=== PATIENT | female | born 1960 | race Caucasian/White ===

== ENCOUNTER 2021-01-07 14:43 | Outpatient (CLI) | payer OTHER, SELFPAY ==
--- NOTE | 2021-01-07 14:48 | MM_ITS ---
WS: [id number] BILATERAL SCREENING DIGITAL MAMMOGRAM WITH CAD HISTORY: SCREENING COMPARISON: 06/14/2017 and 12/18/2014 Bilateral CC and MLO views submitted. Computer aided detection analyzed. Breast composition: There are scattered areas of fibroglandular density. No suspicious masses, microc alcifications or architectural distortion. Asymmetry in the anterior mid RIGHT breast continues to in volute slowly over time. Benign calcifications in each breast. MM/[place] [id number] IMPRESSION: BI-RADS: 2-Benign FOLLOW UP: 1 Year Follow-up
== END 2021-01-07 14:44 | disposition home or self-care (01) ==
LOC: RADSHAW 14:46
PROVIDERS: Family Provider Internal Medicine; Visit Provider Internal Medicine
DX: Z12.31 Encounter for screening mammogram for malignant neoplasm of breast (principal)
CPT/HCPCS: 77067

== ENCOUNTER 2022-06-23 11:08 | Outpatient (CLI) | payer OTHER, SELFPAY ==
--- NOTE | 2022-06-23 11:20 | MM_ITS ---
WS: [id number] Bilateral screening 3D tomosynthesis digital mammogram, 06/23/2022 Clinical Data: SCREENING Comparison: 01/07/2021, 06/14/2017, 12/18/2014, 12/10/2013, 08/01/2012, 09/27/2010, 09/20/2009, 03/30/2008. Findings: The breast parenchymal pattern shows fibroglandular tissue. No spiculated masses or clustered calcifi cations are seen. There are no secondary signs of carcinoma. There are benign calcifications in the a nterior aspect of both breasts, especially on the right. MM/[place] [id number] Impression: 1. Negative bilateral mammogram unchanged. 2. Recommend annual screening mammograms. BIRADS: 1-Negative FOLLOW UP: 1 Year Follow-up The CAD food checker was used.
== END 2022-06-23 11:09 | disposition home or self-care (01) ==
LOC: RAD 11:08
PROVIDERS: Family Provider Internal Medicine; Visit Provider Internal Medicine
DX: Z12.31 Encounter for screening mammogram for malignant neoplasm of breast (principal)
CPT/HCPCS: 77063; 77067

== ENCOUNTER 2024-04-30 11:06 | Outpatient (CLI) | payer OTHER, SELFPAY ==
--- NOTE | 2024-04-30 11:24 | XRR_ITS ---
PROCEDURE INFORMATION: Exam: XR Left Shoulder Exam date and time: 04/30/2024 10:12 AM Age: 63 years old Clinical indication: Patient HX: Pain in left shoulder since fall years ago; Additional info: Pain of left shoulder joint TECHNIQUE: Imaging protocol: Radiologic exam of the left shoulder. Views: 2 or more views. COMPARISON: No relevant prior studies available. FINDINGS: Bones/joints: Moderate acromioclavicular and marked no fracture or dislocation. glenohumeral spurring. Soft tissues: Normal. XR/XR shoulder LT min 2V* [id number] IMPRESSION: Marked degenerative changes.
== END 2024-04-30 11:07 | disposition home or self-care (01) ==
LOC: RADOUTREAD 11:21
PROVIDERS: PCP Internal Medicine; Visit Provider Internal Medicine
DX: M25.512 Pain in left shoulder (principal)

== ENCOUNTER → 2024-06-02 10:40 | Outpatient (BNVA) | payer OTHER, SELFPAY | PROVIDERS: PCP Internal Medicine; Visit Provider Specialist | DX: M19.012 Primary osteoarthritis, left shoulder (principal) | CPT/HCPCS: 73030 ==

== ENCOUNTER 2024-07-01 07:10 | Outpatient (CLI) | payer OTHER, SELFPAY ==
--- NOTE | 2024-07-01 07:15 | MR_ITS ---
WS: [id number] MRI LEFT SHOULDER NONCONTRAST TECHNIQUE: Sagittal T2, coronal T1, T2 and proton density imaging. Axial gradient PDE imaging. CLINICAL INFORMATION: left shoulder pain COMPARISON: None. FINDINGS: Moderate degenerative arthritis at the AC joint with fluid and edema. Slight subacromial spurring. Im pingement distal supraspinatus. Advanced degenerative narrowing of the glenohumeral articulation with hypertrophic spurring along the medial humeral neck. Subchondral cystic change involving the glenoid . Large chronic thinning of the supraspinatus with tendinopathy. Chronic thinning of the infraspinatus with tendinopathy. Teres minor appears intact. Subscapularis tendon appears intact. Biceps tendon maricel ears subluxed or dislocated from the bicipital groove with hypertrophic spur along the proximal groov e. Partial tear of the transverse humeral ligament. Intra-articular biceps tendon appears intact. MR/MR shoulder LT wo con* [id number] IMPRESSION: 1. Marked advanced degenerative changes glenohumeral articulation with loss of the joint space and prominent hypertrophic changes. Prominent spur along the m edial humeral head and neck measuring 2.8 cm. 2. Moderate degenerative arthritis AC joint with slight impingement distal sup raspinatus. Marked chronic thinning of the supraspinatus with tendinopathy. 3. Chronic thinning of the infraspinatus. 4. Partial tear of the transverse humeral ligament with dislocation or subluxa tion of the biceps tendon from the proximal bicipital groove with an associated prominent osteophyte along the medial bicipital groove. 5. Intra-articular biceps tendon appears intact.
== END 2024-07-01 07:11 | disposition home or self-care (01) ==
LOC: RAD 07:11
PROVIDERS: PCP Internal Medicine; Visit Provider Specialist
DX: M19.012 Primary osteoarthritis, left shoulder (principal); S43.492A Other sprain of left shoulder joint, initial encounter; X58.XXXA Exposure to other specified factors, initial encounter
CPT/HCPCS: 73221

== ENCOUNTER 2025-01-27 07:35 | Outpatient (CLI) | payer OTHER, SELFPAY ==
--- NOTE | 2025-01-27 07:39 | CT_ITS ---
WS: [id number] LDCT LUNG CANCER SCREENING HISTORY: NICOTINE DEPENDENCE,CIGARETTES TECHNIQUE: Axial imaging performed from the apices to 1 cm below the costophrenic angles. Coronal and sagittal reformats are submitted with axial MIP series. All CT scans at [facility] use at least one of these dose optimization techniques: automated exposure control; mA and/or kV adjustment per patient size (includes targeted exams where dose is matched to clinical indication); or iterative reconstruction. DLP: 96.60 mGy.cm DIvol: Mean CTDIvol: 2.30 (mGy) COMPARISON: None available. Diagnostic quality: Satisfactory Lungs: Normally aerated lungs. Nodule with adjacent satellite lesions in the superior medial segment of the LEFT lower lobe. Nodule measures 8 mm with smaller adjacent satellite lesions. This is a noncalcified nodule. No additional nodule or mass. No endobronchial lesions. Heart: Normal size heart with no pericardial effusion.. Other findings: No adrenal mass. Upper abdomen is negative. Prior LEFT humeral head prosthesis. CT/CT lung screening [id number] IMPRESSION: LUNG-RADS: 4A-Probably Suspicious FOLLOW UP: 3 Month LDCT OTHER FINDINGS (S MODIFIER): None.
== END 2025-01-27 07:36 | disposition home or self-care (01) ==
PROVIDERS: PCP Internal Medicine; Visit Provider Nurse Practitioner Family
DX: Z12.2 Encounter for screening for malignant neoplasm of respiratory organs (principal); F17.210 Nicotine dependence, cigarettes, uncomplicated; R91.1 Solitary pulmonary nodule; Z96.89 Presence of other specified functional implants
CPT/HCPCS: 71271

== ENCOUNTER 2025-01-30 12:02 | Outpatient (CLI) | payer OTHER, SELFPAY ==
--- NOTE | 2025-01-30 12:08 | MM_ITS ---
WS: [id number] BILATERAL 3D TOMOSYNTHESIS DIGITAL SCREENING MAMMOGRAPHY WITH CAD CLINICAL INFORMATION: SCREENING HISTORY: Screening mammogram. No current complaints. COMPARISON: 2021 TECHNIQUE: Bilateral CC and MLO views. FINDINGS: Bilateral reduction Scattered fibroglandular densities bilaterally. No suspicious focal mass, asymmetry, calcifications, or architectural distortion. No evidence of malignancy. Punctate and lucent centered calcifications RIGHT breast. Nodular RIGHT breast tissue is similar to previous. MM/MM [facility] tomosynthesis [id number] IMPRESSION: DENSITY: There are scattered areas of fibroglandular density. BI-RADS: 2 - Benign. FOLLOW UP: 1 Year Follow-up Recommend return to annual screening mammography.
== END 2025-01-30 12:03 | disposition home or self-care (01) ==
PROVIDERS: PCP Nurse Practitioner Family; Visit Provider Nurse Practitioner Family
DX: Z12.31 Encounter for screening mammogram for malignant neoplasm of breast (principal); R92.323 Mammographic fibroglandular density, bilateral breasts; R92.1 Mammographic calcification found on diagnostic imaging of breast; N64.89 Other specified disorders of breast
CPT/HCPCS: 77063; 77067

== ENCOUNTER 2025-03-31 07:41 | Day surgery (SDC) | payer OTHER, SELFPAY ==
[2025-03-31 07:53] VITALS: BP 140/75; PULSE 91; RESP 18; TEMP 36.6; O2SAT 95; BMI 32.8
[2025-03-31] MEDS: sodium chloride 0.9% 1,000 ML 15 ML IV (08:10)
[2025-03-31 08:15] LABS: Glucose Point of Care 102 mg/dL (70-110)
--- NOTE | 2025-03-31 08:46 | ANES.PREANE2 ---
Pre-Anesthetic Assessment Height/Weight: Height 5 ft 3 in Weight 185 lb Temp Pulse Resp BP Pulse Ox O2 Del Method 97.8 F 91 18 140/75 95 Room Air 03/31/25 07:53 03/31/25 07:53 03/31/25 07:53 03/31/25 07:53 03/31/25 07:53 03/31/25 07:53 Preop Diagnosis: Screening colonoscopy Operation Date: 03/31/25 09:00 Proposed Procedures p Colonoscopy [id number] G0121 Z12.11(Not Applicable) - Lars Tsang MD Was Beta Tram taken within 24 hours: N/A Was Clonidine taken within 24 hours: N/A Last intake: Intake Last Liquid Date 03/30/25 Last Liquid Time 23:00 Last Solid Date 03/29/25 Last Solid Time 19:00 Social Tobacco and No alcohol Exam alert, oriented x 3 and regular rate & rhythm Airway Submandibular: within normal limits Cervical ROM: within normal limits Mallampati: Class II Dentition: full Anesthetic Plan ASA status: 3 Anesthesia: MAC Other: No prior issues with anesthesia Completed bowel prep History of hypertension on losartan. Preop BP 140/75 Type 2 diabetes, on metformin. Preop BS 102 Current smoker METs greater than 4 Plan for MAC anesthesia Medications/Allergies Home Medications ?Medication ?Instructions ?Recorded ?Confirmed ?Last Taken ?Type metformin 500 mg tablet 500 mg PO DAILY 06/02/24 03/26/25 03/30/25 History trazodone 100 mg tablet 100 mg PO DAILY 06/02/24 03/26/25 03/30/25 History valacyclovir 500 mg tablet 500 mg PO BID PRN Cold Sores 06/02/24 03/26/25 Unknown History hydroxyzine pamoate 50 mg capsule 50 mg PO DIRECTED PRN Migraine 03/06/25 03/26/25 Unknown History Headache losartan 100 mg tablet 100 mg PO DAILY 03/06/25 03/26/25 03/30/25 History sumatriptan succinate 100 mg tablet 100 mg PO DIRECTED PRN Migraine 03/06/25 03/26/25 Unknown History Headache Allergies Allergy/AdvReac Type Severity Reaction Status Date / Time No Known Allergies Allergy Verified 03/26/25 08:37 Current Medications Generic Name Dose Route Start Last Admin Trade Name Freq PRN Reason Stop Dose Admin Sodium Chloride 1,000 mls @ 15 mls/hr 03/31/25 07:44 03/31/25 08:10 Sodium Chloride 0.9% IV 04/01/25 07:43 15 mls/hr .Q24H PRN Administration COLONOSCOPY FLUIDS PFSH Anesthesia Social History Smoking and tobacco/nicotine status: never used tobacco/nicotine
--- NOTE | 2025-03-31 08:58 | W.PM.OPSUD ---
Surgery/Procedure H&P Update DATE OF PROCEDURE: March 31, 2025 DATE H&P PERFORMED: 03/06/25 H&P UPDATE INFORMATION: I have reviewed H&P completed within last 30 days, I have examined patient prior to procedure and No changes to prior documentation PREOP DIAGNOSIS: Screening colonoscopy PLANNED PROCEDURE: Operation Date: 03/31/25 09:00 Proposed Procedures p Colonoscopy 94609 G0121 Z12.11(Not Applicable) - Lars Tsang MD
[2025-03-31 09:20] VITALS: BP 107/62; PULSE 85; RESP 18; TEMP 36.3; O2SAT 96
[2025-03-31 09:40] VITALS: BP 133/80; PULSE 74; RESP 17; O2SAT 98
[2025-03-31 10:09] VITALS: BP 125/84; PULSE 81; RESP 18; O2SAT 100
--- NOTE | 2025-03-31 10:19 | ANE.PACU2 ---
Inpatient post-anesthesia follow up: Airway intact: Yes Vital signs: Temperature 97.4 F Pulse Rate 81 Respiratory Rate 18 Blood Pressure 125/84 Pulse Oximetry 100 Oxygen Delivery Me thod Room Air Oxygen Flow Rate Fraction of Inspir ed Oxygen Hydration adequate: Yes Nausea and vomiting: No Pain level: 1 Mental status: Baseline
== END 2025-03-31 10:19 | disposition home or self-care (01) ==
PROVIDERS: PCP Nurse Practitioner Family; Visit Provider Student in an Organized Health Care Education/Training Program
PROC: 0DJD8ZZ Inspection of Lower Intestinal Tract, Via Natural or Artificial Opening Endoscopic (ICD-10-PCS; CPT 45378; principal; 2025-03-31 09:00)
DX: Z12.11 Encounter for screening for malignant neoplasm of colon (principal); K62.1 Rectal polyp; K64.4 Residual hemorrhoidal skin tags; I10 Essential (primary) hypertension; Z79.899 Other long term (current) drug therapy; E11.9 Type 2 diabetes mellitus without complications; Z79.84 Long term (current) use of oral hypoglycemic drugs; F17.200 Nicotine dependence, unspecified, uncomplicated
CPT/HCPCS: 36416; 43239; 45385; 82962; 88305; J2704; J3490; J7030

== ENCOUNTER → 2025-06-16 10:58 | Outpatient (BNVA) | payer OTHER, SELFPAY | PROVIDERS: PCP Nurse Practitioner Family; Visit Provider Emergency Medicine | DX: R35.0 Frequency of micturition (principal) | CPT/HCPCS: 81000 ==

== ENCOUNTER 2025-07-03 06:39 | Outpatient (CLI) | payer OTHER, SELFPAY ==
--- NOTE | 2025-07-03 06:51 | CT_ITS ---
WS: [id number] CT chest wo con [id number] HISTORY: LUNG NODULES TECHNIQUE: Axial imaging performed through the thorax. Coronal and sagittal reformats are submitted. All CT scans at [facility] use at least one of these dose optimization techniques: automated exposure control; mA and/or kV adjustment per patient size (includes targeted exams where dose is matched to clinical indication); or iterative reconstruction. CONTRAST: None DLP: 480.21 mGy.cm COMPARISON: 01/27/2025 Lungs and central airway: Mild pulmonary hyperinflation. Recently described nodule medial superior segment LEFT lower lobe is reidentified. This nodule has increased in size now measuring 1.7 x 1.3 x 1.8 cm. Small satellite nodules remain. Nodule abuts the posterior descending thoracic aorta and the paraspinal pleura. No additional mass. There is a tiny nodule which may be calcified RIGHT middle lobe. Pleura: Normal. No pleural effusion. Heart and pericardium: Normal size heart with no pericardial effusion. Mediastinum and mega: Small mediastinal and hilar lymph nodes. Vessels: Minimal atherosclerosis aorta. Chest wall and lower neck: No soft tissue masses. Upper abdomen: LEFT adrenal nodule measures 11 mm with low Hounsfield units. Normal RIGHT adrenal gland. Osseous structures: T5 sclerotic focus is probably a bone island. Prior LEFT humeral head replacement. AC joint arthropathy. CT/CT chest wo con [id number] IMPRESSION: 1. Superior medial segment LEFT lower lobe nodule has increased in size compar ed to 01/27/2025 now measuring 1.7 x 1.3 x 1.8 cm. Recommend follow-up PET/CT im aging at this time. Evaluation by pulmonology may also be helpful. 2. No mediastinal or hilar adenopathy identified. 3. Mild emphysema. 4. LEFT adrenal gland nodule with negative Hounsfield units consistent with an adenoma.
== END 2025-07-03 06:40 | disposition home or self-care (01) ==
LOC: RAD 06:40
PROVIDERS: PCP Nurse Practitioner Family; Visit Provider Nurse Practitioner Family
DX: R91.8 Other nonspecific abnormal finding of lung field (principal); J43.9 Emphysema, unspecified; D35.02 Benign neoplasm of left adrenal gland
CPT/HCPCS: 71250